=== PATIENT | male | born 1975 | race Caucasian/White ===

== ENCOUNTER 2018-08-15 07:57 | Emergency (ER) | payer BC ==
--- NOTE | 2018-08-15 08:06 | Emergency Department Record ---
History of Present Illness - General Chief Complaint: Chest Pain Stated Complaint: CHEST PAIN Time Seen by Provider: 08/15/18 08:01 Source: Patient Mode of Arrival: Ambulatory Limitations: No limitations - History of Present Illness Initial Comments: 42 yo male presents with chest pain that started about 6 hours ago at 2am. The onset was while at work. The discomfort is a cramp or tightness. No shortness of breath. It is not related to exertion. No history of CAD. He is a former smoker. He has diet treated elevated cholesterol. No family history of CAD prematurely. NO leg pain or swelling. No cough. He is not short of breath. The pain radiates to the back of the shoulder. PCP is Virginia Jackson. The patient took a full aspirin prior to arrival. MD Complaint: Chest pain -: Hour(s) Onset: Other (Work) Pain Location: Substernal Pain Radiation: Back Severity: Mild Quality: Tightness Consistency: Constant Improves With: Nothing Worsens With: Nothing Context: Other Anginal Symptoms: Other (Clammy) Other Symptoms: Other Treatments Prior to Arrival: Aspirin - Related Data Home Medications Medication Instructions Recorded Confirmed Last Taken Hydrocodone/Acetaminophen [[place] 1 each PO ASDIR 08/15/18 08/15/18 Unknown 5-325 Tablet] Allergies Allergy/AdvReac Type Severity Reaction Status Date / Time No Known Drug Allergies Allergy Verified 08/15/18 08:03 Review of Systems Constitutional: Denies: Chills, Fever, Malaise, Weakness Eyes: Denies: Eye discharge ENT: Denies: Congestion, Throat pain Respiratory: Denies: Cough Cardiovascular: Reports: As per HPI, Chest pain. Denies: Edema, Syncope Endocrine: Denies: Fatigue Gastrointestinal: Denies: Abdominal pain, Diarrhea, Nausea, Vomiting Genitourinary: Denies: Dysuria, Frequency, Hematuria Musculoskeletal: Denies: Arthralgia, Back pain, Myalgia Skin: Denies: Bruising, Change in color, Rash Neurological: Denies: Headache Psychiatric: Denies: Anxiety Hematological/Lymphatic: Denies: Easy bleeding, Easy bruising Physical Exam - General General Appearance: Alert, Oriented x3, Cooperative, No acute distress Limitations: No limitations - Head Head exam: Atraumatic, Normal inspection - Eye Eye exam: Normal appearance. negative: Conjunctival injection - ENT ENT exam: Normal exam Ear exam: Normal external inspection Nasal Exam: Normal inspection Mouth exam: Normal external inspection - Neck Neck exam: Normal inspection - Respiratory Respiratory exam: Normal lung sounds bilaterally. negative: Chest wall tenderness, Decreased breath sounds, Respiratory distress, Rhonchi, Stridor, Wheezes - Cardiovascular Cardiovascular Exam: Regular rate, Normal rhythm, Normal heart sounds Peripheral Pulses: 2+: Radial (R), Radial (L) - GI/Abdominal GI/Abdominal exam: Soft. negative: Tenderness - Rectal Rectal exam: Deferred - exam: Deferred - Extremities Extremities exam: Normal inspection. negative: Tenderness - Back Back exam: Denies: CVA tenderness (R), CVA tenderness (L) - Neurological Neurological exam: Alert, Normal gait, Oriented X3. negative: Abnormal gait - Psychiatric Psychiatric exam: Normal affect, Normal mood. negative: Agitated, Anxious - Skin Skin exam: Dry, Intact, Normal color, Warm Course - Reevaluation(s) Reevaluation #1: 08/15/18 08:02 EKG #1: 08:01 Rate: 52 Rhythm: sinus parminder Shell: normal Intervals: normal ST segments: no acute changes Prior: 08/15/18 08:26 No acute changes on the CBC or CMP 08/15/18 08:33 Troponin is normal 08/15/18 09:39 The CXR was reviewed. No acute process. 08/15/18 09:57 The case was discussed with Dr Singh. We discussed the EKG and Troponin. The options were discussed for admission vs close outpatient arrangement with Dr Singh and the patient. The patient chose close follow up in the office An appointment was made at 8:[address] Severino We discussed reasons to immediately return or be seen in the meantime prior to the follow up appointment HEART Score is 1. Low risk. A second Troponin will be sent (8 Hour since onset at 2am) 08/15/18 10:33 8 hour Troponin from onset is negative DC home with established followup Medical Decision Making - Lab Data Result diagrams: 08/15/18 08:00 08/15/18 08:00 Disposition Disposition: Discharge Clinical Impression: Chest pain Qualifiers: Chest pain type: unspecified Qualified Code(s): R07.9 - Chest pain, unspecified Disposition: Home, Self-Care Condition: (1) Good Instructions: Chest Pain (ED) Additional Instructions: Return morning for an 8:45am appointment with Dr Severino Return sooner if short of breath, return of chest pain, any new symptoms or concerns Referrals: [facility] [Provider Group] ZULAY SEVERINO M.D. [MEDICAL DOCTOR] - Forms: Patient Portal Access Time of Disposition: 10:05 Quality - Quality Measures Quality Measures: N/A - Blood Pressure Screening Does Patient Have Any of the Following: No Blood Pressure Classification: Hypertensive Reading Systolic Measurement: 144 Diastolic Measurement: 73 Screening for High Blood Pressure: < Pre-Hypertensive BP, F/U Documented > [[id number]] Pre-Hypertensive Follow-up Interventions: Referral to alternative/primary care provider.
[2018-08-15 08:11] LABS: ABSOLUTE NEUTROPHIL COUNT 4.22; BASO % 0.6 % (0-6); EOS % 2.8 % (0-6); GRAN % 52.7 % (47-80); HEMATOCRIT 44.2 % (42.0-52.0); LYMPH % 36.1 % (16-45); MEAN CELL VOLUME 88.9 fl (81-97); MEAN CORPUSCULAR HEMOGLOBIN 30.2 pg (27-33); MEAN CORPUSCULAR HGB CONC 33.9 g/dl (32-36); MONO % 7.8 % (0-9); PLATELET COUNT 293 K/uL (130-400); RED BLOOD COUNT 4.97 M/uL (4.40-5.70); RED CELL DISTRIBUTION WIDTH 12.2 % (11.5-14.5)
[2018-08-15 08:20] LABS: BLOOD UREA NITROGEN 10 mg/dL (6-20); CREATININE 0.8 mg/dL (0.7-1.2); EST GLOMERULAR FILTRATION RATE > 60 mL/min
[2018-08-15 08:23] LABS: GLUCOSE,RANDOM 104 mg/dL (74-109)
[2018-08-15 08:25] LABS: ALB/GLOB RATIO 1.9 (1.1-1.8); ALBUMIN 4.6 g/dL (4.0-5.0); ALT/SGPT 17 U/L (<41); AST/SGOT 19 U/L (10.0-50.0)
[2018-08-15 08:26] LABS: ALKALINE PHOSPHATASE 81 U/L (40-129)
--- NOTE | 2018-08-17 05:48 | RADIOLOGY REPORT ---
EXAM: CHEST 2 VIEWS HISTORY: MIDLINE CHEST PAIN RADIATING TO LEFT ARM AND BACK FOR FIVE HOURS. TECHNIQUE: Upright PA and lateral views of the chest. COMPARISON: None. FINDINGS: The heart is not enlarged and the pulmonary vasculature is nondilated. The lungs and pleural spaces are clear. Mild degenerative endplate changes are scattered within the lower thoracic spine. IMPRESSION: NO RADIOGRAPHIC EVIDENCE OF ACUTE CARDIOPULMONARY DISEASE. JOB NUMBER: [id number] [id number]
== END 2018-08-15 10:40 | disposition home or self-care (01) ==
LOC: ER 07:57
DX: R07.89 Other chest pain (principal); R06.02 Shortness of breath; Z87.891 Personal history of nicotine dependence
CPT/HCPCS: 71046; 80053; 84484; 85025; 85379; 93005; 93010; 99284